=== PATIENT | male | born 1945 ===

== ENCOUNTER 2024-08-31 17:39 | Emergency (ER) | payer OTHER, MEDICARE ==
[2024-08-31 17:49] VITALS: BP 167/92; PULSE 87
== END 2024-08-31 18:35 | disposition home or self-care (01) ==
LOC: LL.ED 17:39
DX: T81.41XA Infection following a procedure, superficial incisional surgical site, initial encounter (principal); Z79.899 Other long term (current) drug therapy; Y83.8 Other surgical procedures as the cause of abnormal reaction of the patient, or of later complication, without mention of misadventure at the time of the procedure
CPT/HCPCS: 73620-LT; 99283; 99284